=== PATIENT | male | born 1945 | race Caucasian/White ===

== ENCOUNTER 2022-04-19 15:43 | Emergency (ER) | payer OTHER ==
[~2022-04-19] VITALS: Ht 167.6 cm; Wt 81.6 kg
[2022-04-19 15:43] VITALS: BP_SYST 149
--- NOTE | 2022-04-19 15:43 | NUR ---
TRIAGED IN TRIAGE ROOM AND WHEELCHAIRED TO BED #1, REPORT GIVEN TO ZARIA
[2022-04-19 17:11] LABS: ANION GAP 11 (5-15); CALCIUM 10.6 mg/dL (8.4-11.0); CHLORIDE 105 mmol/L (98-107); CREATININE 2.15 mg/dL (0.55-1.30); GLUCOSE 214 mg/dL (70-99); POTASSIUM 4.7 mmol/L (3.5-5.1); SODIUM SERUM 144 mmol/L (136-145); UREA NITROGEN, BLOOD 34 mg/dL (8-21)
[2022-04-19 17:13] LABS: BASOPHILS % (AUTO) 0.4 % (0.0-2.0); HEMATOCRIT 48.7 % (36-54); HEMOGLOBIN 16.5 g/dL (14.0-18.0); LYMPHOCYTES # (AUTO) 1.1 K/uL (1.0-5.5); LYMPHOCYTES % (AUTO) 11.6 % (20.5-51.5); MEAN CORPUSCULAR HEMOGLOBIN 31 pg (27-31); MEAN CORPUSCULAR HGB CONC 34 % (32-36); MEAN CORPUSCULAR VOLUME 92 fL (79.0-98.0); MONOCYTES # (AUTO) 0.4 K/uL (0.0-1.0); MONOCYTES % (AUTO) 4.4 % (1.7-9.3); NEUTROPHILS # (AUTO) 8.2 K/uL (1.8-7.7); NEUTROPHILS % (AUTO) 83.6 % (40.0-70.0); PLATELET COUNT (AUTO) 272 K/uL (130-430); RED BLOOD CELL COUNT(AUTO) 5.27 MIL/uL (4.2-6.2); RED CELL DISTRIBUTION WIDTH 14.6 % (9.0-15.0); WHITE BLOOD COUNT (AUTO) 9.8 K/uL (4.8-10.8)
[2022-04-19 17:20] LABS: ALANINE AMINOTRANSFERASE 37 U/L (12-78); ALBUMIN 3.9 g/dL (3.4-4.8); ASPARTATE AMINOTRANSFERASE 20 U/L (10-37); TOTAL BILIRUBIN 0.7 mg/dL (0.0-1.0)
[2022-04-19] MEDS ORDERED: ASPIRIN 325 MG TABLET PO ONE (17:45)
--- NOTE | 2022-04-19 17:53 | NUR ---
PT BIB WITH C/C OF SOB. DENIES ANY CP, PALPITATIONS, SOB AT THIS TIME. ON ROOM AIR WITH O2 SAT AT 95-96%. LUNGS CLEAR TO AUSCULTATION IN ALL BOYCE. DENIES ANY OTHER PAIN. 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 AFEBRILE. PT WITH RECENT COVID INFECTION 2 WEEKS AGO. CXR DONE. MD AWARE. VSS. ALL NEEDS ATTENDED TO. WILL CONT TO MONITOR.
--- NOTE | 2022-04-19 19:30 | NUR ---
received report from Marv/RN, pt a&o x4, verbal, ambulation not observed, family at bedside, no sob/ distress, no c/o pain at this time. no IV, Hx: CHF, COPD, HTN. came from home, with c/o sob, gen. weakness & not feeling well. pt self cath at home.
[2022-04-19] MEDS ORDERED: AZITHROMYCIN 250 MG TABLET PO ONE (20:15)
[2022-04-19] MEDS ORDERED: cefTRIAXone 1 GM in D5W 50 ML IV ONE (20:15)
[2022-04-19] MEDS ORDERED: cloNIDine HCL 0.1 MG TABLET PO ONE (20:15)
[2022-04-19] MEDS ORDERED: NACL 0.9% 1,000 ML IV ONE ×2 (20:15→21:00)
[2022-04-19] MEDS ORDERED: ONDANSETRON HCL 4 MG/2 ML VIAL IVP ONE (21:00)
[2022-04-19] MEDS ORDERED: PROC10TA13 PO (21:05)
[2022-04-19] MEDS ORDERED: ONDA-8 TL (21:05)
[2022-04-19] MEDS ORDERED: cloNIDine HCL 0.1 MG TABLET ONE (21:50)
[2022-04-19 22:15] VITALS: BP_SYST 154
--- NOTE | 2022-04-19 22:15 | NUR ---
d/c home with family, IV peripheral line d/c cath intact, no bleeding. no sob/ distress, ambulatory with assist, no c/o pain at this time. no further needs.
== END 2022-04-19 22:15 | disposition home or self-care (01) ==
LOC: SED 15:43
DX: R06.02 Shortness of breath (principal); R11.2 Nausea with vomiting, unspecified; I10 Essential (primary) hypertension; Z79.899 Other long term (current) drug therapy
CPT/HCPCS: 99285; 96374; 71045; 96361; 80053; 83880; 85025; 84484; 36415; 93005; 83605; J2405; J7030; 99284

== ENCOUNTER 2023-02-25 13:34 | Inpatient (IN) | payer OTHER ==
[~2023-02-25] VITALS: Ht 167.6 cm; Wt 81.2 kg
[~2023-02-25 13:34] MED LIST: ONDA-8 TL; PROC10TA13 PO
[2023-02-25 13:40] VITALS: BP_SYST 109
[2023-02-25] MEDS ORDERED: NACL 0.9% 1,000 ML IV ONE ×3 (15:00→18:00)
[2023-02-25] MEDS ORDERED: CEFEPIME 1 GM in D5W 50 ML IV ONE (15:00)
[2023-02-25] MEDS ORDERED: CEFEPIME 1 GM/VIAL (MAXIPIME) ONE (15:36)
[2023-02-25] MEDS ORDERED: CRAN500T4 PO (16:07)
[2023-02-25] MEDS ORDERED: MULT-1238 PO (16:07)
[2023-02-25] MEDS ORDERED: CLOP75TA32 PO (16:07)
[2023-02-25] MEDS ORDERED: PIOG45TA PO (16:07)
[2023-02-25] MEDS ORDERED: ECO81 PO (16:07)
[2023-02-25] MEDS ORDERED: METH1TAB PO (16:07)
[2023-02-25] MEDS ORDERED: SIMV-343 PO ×2 (16:07→16:13)
[2023-02-25] MEDS ORDERED: DAPA10TA PO (16:07)
[2023-02-25 16:10] LABS: BASOPHILS % (AUTO) 0.2 % (0.0-2.0); EOSINOPHILS % (AUTO) 0.1 % (0.0-4.0); HEMATOCRIT 48.9 % (36-54); HEMOGLOBIN 16.3 g/dL (14.0-18.0); LYMPHOCYTES # (AUTO) 0.3 K/uL (1.0-5.5); LYMPHOCYTES % (AUTO) 3.9 % (20.5-51.5); MEAN CORPUSCULAR HEMOGLOBIN 32 pg (27-31); MEAN CORPUSCULAR HGB CONC 33 % (32-36); MEAN CORPUSCULAR VOLUME 96 fL (79.0-98.0); MONOCYTES # (AUTO) 0.2 K/uL (0.0-1.0); MONOCYTES % (AUTO) 2.5 % (1.7-9.3); NEUTROPHILS # (AUTO) 7.3 K/uL (1.8-7.7); NEUTROPHILS % (AUTO) 93.3 % (40.0-70.0); PLATELET COUNT (AUTO) 144 K/uL (130-430); RED BLOOD CELL COUNT(AUTO) 5.11 MIL/uL (4.2-6.2); RED CELL DISTRIBUTION WIDTH 14.5 % (9.0-15.0); WHITE BLOOD COUNT (AUTO) 7.8 K/uL (4.8-10.8)
[2023-02-25] MEDS ORDERED: MEMA5TAB42 PO (16:13)
[2023-02-25] MEDS ORDERED: PRO40 PO (16:13)
[2023-02-25 16:17] LABS: ANION GAP 13 (5-15); CHLORIDE 102 mmol/L (98-107); GLUCOSE 168 mg/dL (70-99); UREA NITROGEN, BLOOD 13 mg/dL (8-21)
[2023-02-25 16:22] LABS: ALANINE AMINOTRANSFERASE 703 U/L (12-78); ALBUMIN 3.6 g/dL (3.4-4.8); ASPARTATE AMINOTRANSFERASE 329 U/L (10-37); LIPASE 90 U/L (73-393); TOTAL BILIRUBIN 6.1 mg/dL (0.0-1.0)
[2023-02-25] MEDS ORDERED: AZITHROMYCIN 500 MG in NS 250 ML IV ONE (16:30)
[2023-02-25 16:40] LABS: BILIRUBIN,URINE 2+ (NEGATIVE); BLOOD, URINE NEGATIVE (NEGATIVE); CLARITY/URINE CLEAR (CLEAR); COLOR,URINE YELLOW (YELLOW); GLUCOSE,URINE 3+ (NEGATIVE); KETONES,URINE 2+ (NEGATIVE); LEUKOCYTE ESTERASE ,URINE NEGATIVE (NEGATIVE); NITRITE, URINE NEGATIVE (NEGATIVE); PROTEIN URINE 1+ (NEGATIVE); UROBILINOGEN,URINE 0.2 (0.2-1.0)
[2023-02-25] MEDS ORDERED: AZITHROMYCIN 500 MG/VIAL (ZITHROMAX) IV ONE (16:45)
[2023-02-25 17:01] LABS: BACTERIA,URINE RARE /HPF (None Seen)
[2023-02-25] MEDS: NACL 0.9% 1,000 ML IV SCH (19:44)
[2023-02-25 21:56] VITALS: BP_SYST 158
[2023-02-25] MEDS ORDERED: ACETAMINOPHEN 325 MG TABLET PO PRN (22:45)
[2023-02-25] MEDS ORDERED: cloNIDine HCL 0.2 MG TABLET PO PRN (22:45)
[2023-02-26] VITALS (7 sets, daily range): BP systolic 109–148
[2023-02-26] MEDS ORDERED: LORazepam 2 MG/ML VIAL IVP PRN
[2023-02-26] MEDS ORDERED: ONDANSETRON 4 MG ODT TAB TL PRN
[2023-02-26] MEDS: PANTOPRAZOLE SODIUM 40 MG/VIAL (PROTONIX) IVP SCH ×3 (00:42→21:05)
[2023-02-26] MEDS ORDERED: cefTRIAXone 1 GM VIAL ONE (00:55)
[2023-02-26] MEDS: cefTRIAXone 1 GM IVPB PREMIX 50 ML IV SCH ×2 (01:18→21:05)
[2023-02-26] MEDS: NACL 0.9% 1,000 ML IV SCH ×3 (05:28→21:33)
[2023-02-26 06:04] LABS: BASOPHILS % (AUTO) 0.4 % (0.0-2.0); EOSINOPHILS # (AUTO) 0.1 K/uL (0.0-0.4); EOSINOPHILS % (AUTO) 1.3 % (0.0-4.0); HEMATOCRIT 44.8 % (36-54); HEMOGLOBIN 14.8 g/dL (14.0-18.0); LYMPHOCYTES # (AUTO) 0.5 K/uL (1.0-5.5); LYMPHOCYTES % (AUTO) 8.7 % (20.5-51.5); MEAN CORPUSCULAR HEMOGLOBIN 32 pg (27-31); MEAN CORPUSCULAR HGB CONC 33 % (32-36); MEAN CORPUSCULAR VOLUME 95 fL (79.0-98.0); MONOCYTES # (AUTO) 0.2 K/uL (0.0-1.0); MONOCYTES % (AUTO) 4.4 % (1.7-9.3); NEUTROPHILS # (AUTO) 4.8 K/uL (1.8-7.7); NEUTROPHILS % (AUTO) 85.2 % (40.0-70.0); PLATELET COUNT (AUTO) 125 K/uL (130-430); RED BLOOD CELL COUNT(AUTO) 4.71 MIL/uL (4.2-6.2); RED CELL DISTRIBUTION WIDTH 14.3 % (9.0-15.0); WHITE BLOOD COUNT (AUTO) 5.6 K/uL (4.8-10.8)
[2023-02-26 06:30] LABS: ANION GAP 15 (5-15); CALCIUM 8.7 mg/dL (8.4-11.0); CHLORIDE 105 mmol/L (98-107); CREATININE 1.62 mg/dL (0.55-1.30); GLUCOSE 131 mg/dL (70-99); PHOSPHORUS 2.9 mg/dL (2.7-4.5); UREA NITROGEN, BLOOD 15 mg/dL (8-21)
[2023-02-26] MEDS ORDERED: PROCHLORPERAZINE MALEATE 10 MG TABLET PO PRN ×2 (06:57)
[2023-02-26] MEDS: PIOGLITAZONE HCL 15 MG TABLET PO SCH (08:29)
[2023-02-26] MEDS: ASPIRIN 81 MG TABLET(ECOTRIN) PO SCH (08:30)
[2023-02-26] MEDS: CLOPIDOGREL BISULFATE 75 MG TABLET PO SCH (08:30)
[2023-02-26] MEDS: MEMANTINE HCL 5 MG TABLET PO SCH ×2 (08:30→21:05)
[2023-02-26 08:36] LABS: ALBUMIN 2.9 g/dL (3.4-4.8); BILIRUBIN,DIRECT 3.8 mg/dL (0.0-0.3); TOTAL BILIRUBIN 4.8 mg/dL (0.0-1.0)
[2023-02-26] MEDS ORDERED: AZITHROMYCIN 500 MG in NS 250 ML IV SCH (09:00)
[2023-02-26] MEDS: ONDANSETRON HCL 4 MG/2 ML VIAL IVP PRN ×2 (09:06→21:30)
[2023-02-26] MEDS ORDERED: POLYETHYLENE GLYCOL 3350, 17 GM/ POWD.PACK PO ONE (10:45)
[2023-02-26 11:24] LABS: TOTAL IRON BIND. CAPACITY 195 ug/dL (250-450)
[2023-02-26] MEDS: metroNIDAZOLE 500 mg/NS 100 ML IV SCH ×2 (16:35→21:03)
[2023-02-26] MEDS: SIMVASTATIN 20 MG TABLET PO SCH (21:05)
[2023-02-26] MEDS: POLYETHYLENE GLYCOL 3350, 17 GM/ POWD.PACK PO SCH (21:06)
[2023-02-27 01:28] VITALS: BP_SYST 141
[2023-02-27] MEDS: ONDANSETRON HCL 4 MG/2 ML VIAL IVP PRN (03:16)
[2023-02-27 05:46] LABS: BASOPHILS % (AUTO) 0.4 % (0.0-2.0); HEMATOCRIT 43.5 % (36-54); HEMOGLOBIN 14.5 g/dL (14.0-18.0); LYMPHOCYTES # (AUTO) 0.4 K/uL (1.0-5.5); LYMPHOCYTES % (AUTO) 8.8 % (20.5-51.5); MEAN CORPUSCULAR HEMOGLOBIN 32 pg (27-31); MEAN CORPUSCULAR HGB CONC 33 % (32-36); MEAN CORPUSCULAR VOLUME 94 fL (79.0-98.0); MONOCYTES # (AUTO) 0.2 K/uL (0.0-1.0); MONOCYTES % (AUTO) 4.9 % (1.7-9.3); NEUTROPHILS # (AUTO) 4.3 K/uL (1.8-7.7); NEUTROPHILS % (AUTO) 84.9 % (40.0-70.0); PLATELET COUNT (AUTO) 109 K/uL (130-430); RED BLOOD CELL COUNT(AUTO) 4.62 MIL/uL (4.2-6.2); RED CELL DISTRIBUTION WIDTH 14.4 % (9.0-15.0)
[2023-02-27 06:01] LABS: ALANINE AMINOTRANSFERASE 339 U/L (12-78); ALBUMIN 2.7 g/dL (3.4-4.8); ANION GAP 11 (5-15); ASPARTATE AMINOTRANSFERASE 68 U/L (10-37); C-REACTIVE PROTEIN QUANT 0.8 mg/dL (0-0.5); CALCIUM 8.2 mg/dL (8.4-11.0); CHLORIDE 106 mmol/L (98-107); CREATININE 1.43 mg/dL (0.55-1.30); GLUCOSE 173 mg/dL (70-99); PHOSPHORUS 2.4 mg/dL (2.7-4.5); TOTAL BILIRUBIN 1.4 mg/dL (0.0-1.0); UREA NITROGEN, BLOOD 15 mg/dL (8-21)
[2023-02-27] MEDS: metroNIDAZOLE 500 mg/NS 100 ML IV SCH ×3 (06:02→21:10)
[2023-02-27 06:27] LABS: INR 1.1 (0.80-1.20); PROTHROMBIN TIME 10.9 SECS (9.5-12.5)
[2023-02-27 06:48] LABS: ERYTHROCYTE SEDIMENTATION RATE 38 MM/HR (0-15)
[2023-02-27 08:42] VITALS: BP_SYST 114
[2023-02-27 10:07] LABS: ALPHA-1-ANTITRYPSIN, S 123 mg/dL (101-187)
[2023-02-27] MEDS: MEMANTINE HCL 5 MG TABLET PO SCH ×2 (10:31→21:13)
[2023-02-27] MEDS: ASPIRIN 81 MG TABLET(ECOTRIN) PO SCH (10:31)
[2023-02-27] MEDS: PIOGLITAZONE HCL 15 MG TABLET PO SCH (10:31)
[2023-02-27] MEDS: POLYETHYLENE GLYCOL 3350, 17 GM/ POWD.PACK PO SCH ×2 (10:31→21:11)
[2023-02-27] MEDS: PANTOPRAZOLE SODIUM 40 MG/VIAL (PROTONIX) IVP SCH ×2 (10:31→21:12)
[2023-02-27] MEDS: CLOPIDOGREL BISULFATE 75 MG TABLET PO SCH (10:31)
[2023-02-27] MEDS: NACL 0.9% 1,000 ML IV SCH ×2 (10:32→21:13)
[2023-02-27 11:06] LABS: AFP, TUMOR MARKER <1.8 ng/mL (0.0-8.4)
[2023-02-27 11:57] VITALS: BP_SYST 139
[2023-02-27 12:06] LABS: FERRITIN 307 ng/mL (30-400)
[2023-02-27 15:42] VITALS: BP_SYST 150
[2023-02-27 19:00] VITALS: BP_SYST 141
[2023-02-27 20:00] VITALS: BP_SYST 141
[2023-02-27] MEDS: cefTRIAXone 1 GM IVPB PREMIX 50 ML IV SCH (21:01)
[2023-02-27] MEDS: SIMVASTATIN 20 MG TABLET PO SCH (21:12)
[2023-02-28 00:17] VITALS: BP_SYST 119
[2023-02-28] MEDS: metroNIDAZOLE 500 mg/NS 100 ML IV SCH ×2 (05:10→14:08)
[2023-02-28] MEDS: NACL 0.9% 1,000 ML IV SCH (05:11)
[2023-02-28 06:08] LABS: BASOPHILS % (AUTO) 0.7 % (0.0-2.0); EOSINOPHILS # (AUTO) 0.1 K/uL (0.0-0.4); EOSINOPHILS % (AUTO) 3.1 % (0.0-4.0); HEMOGLOBIN 13.8 g/dL (14.0-18.0); LYMPHOCYTES # (AUTO) 0.7 K/uL (1.0-5.5); LYMPHOCYTES % (AUTO) 18.7 % (20.5-51.5); MEAN CORPUSCULAR HEMOGLOBIN 32 pg (27-31); MEAN CORPUSCULAR HGB CONC 34 % (32-36); MEAN CORPUSCULAR VOLUME 94 fL (79.0-98.0); MONOCYTES # (AUTO) 0.4 K/uL (0.0-1.0); MONOCYTES % (AUTO) 9.8 % (1.7-9.3); NEUTROPHILS # (AUTO) 2.6 K/uL (1.8-7.7); NEUTROPHILS % (AUTO) 67.7 % (40.0-70.0); PLATELET COUNT (AUTO) 109 K/uL (130-430); RED BLOOD CELL COUNT(AUTO) 4.38 MIL/uL (4.2-6.2); RED CELL DISTRIBUTION WIDTH 14.5 % (9.0-15.0); WHITE BLOOD COUNT (AUTO) 3.9 K/uL (4.8-10.8)
[2023-02-28 06:48] LABS: ERYTHROCYTE SEDIMENTATION RATE 20 MM/HR (0-15)
[2023-02-28 08:01] VITALS: BP_SYST 144
[2023-02-28 08:14] LABS: ALANINE AMINOTRANSFERASE 214 U/L (12-78); ALBUMIN 2.5 g/dL (3.4-4.8); ANION GAP 9 (5-15); ASPARTATE AMINOTRANSFERASE 35 U/L (10-37); C-REACTIVE PROTEIN QUANT 0.3 mg/dL (0-0.5); CALCIUM 7.9 mg/dL (8.4-11.0); CHLORIDE 103 mmol/L (98-107); CREATININE 1.25 mg/dL (0.55-1.30); GLUCOSE 164 mg/dL (70-99); PHOSPHORUS 2.5 mg/dL (2.7-4.5); TOTAL BILIRUBIN 0.8 mg/dL (0.0-1.0); UREA NITROGEN, BLOOD 14 mg/dL (8-21)
[2023-02-28] MEDS: PIOGLITAZONE HCL 15 MG TABLET PO SCH (08:54)
[2023-02-28] MEDS: MEMANTINE HCL 5 MG TABLET PO SCH (08:54)
[2023-02-28] MEDS: CLOPIDOGREL BISULFATE 75 MG TABLET PO SCH (08:54)
[2023-02-28] MEDS: POLYETHYLENE GLYCOL 3350, 17 GM/ POWD.PACK PO SCH (08:55)
[2023-02-28] MEDS: ASPIRIN 81 MG TABLET(ECOTRIN) PO SCH (08:55)
[2023-02-28] MEDS: PANTOPRAZOLE SODIUM 40 MG/VIAL (PROTONIX) IVP SCH (08:55)
[2023-02-28] MEDS ORDERED: POTASSIUM CHLORIDE 20 MEQ TAB.PRT.SR PO ONE (09:00)
[2023-02-28 12:07] LABS: HEPATITIS A AB, IgM Negative (Negative); HEPATITIS B CORE AB, IgM Negative (Negative); HEPATITIS B SURFACE AG Negative (Negative)
[2023-02-28] MEDS ORDERED: DOCU-144 PO (12:20)
[2023-02-28] MEDS ORDERED: AMOX-423 PO (12:20)
[2023-02-28] MEDS ORDERED: MECL-225 PO (12:30)
[2023-02-28] MEDS ORDERED: K PHOS 15 MM in NS 250 ML IV ONE (13:30)
[2023-02-28 14:00] VITALS: BP_SYST 157
[2023-02-28 16:00] VITALS: BP_SYST 148
[2023-02-28 19:45] VITALS: BP_SYST 118
[2023-03-01 08:06] LABS: ANTI-SMOOTH MUSCLE AB 9 Units (0-19)
[2023-03-04 19:06] LABS: ANTI NUCLEAR AB WITH REFLEX Negative (Negative)
== END 2023-02-28 20:20 | disposition home health service (06) | DRG 871 ==
LOC: SED 13:34 → STU 19:20 → SMU 02-28 20:03
PROVIDERS: ADMIT Preventive Medicine Preventive Medicine/Occupational Environmental Medicine; ATTEND Preventive Medicine Preventive Medicine/Occupational Environmental Medicine
PROC: 5A09357 Assistance with Respiratory Ventilation, Less than 24 Consecutive Hours, Continuous Positive Airway Pressure (ICD-10-PCS; principal; 2023-02-26)
DX: A41.9 Sepsis, unspecified organism (principal); E43 Unspecified severe protein-calorie malnutrition; J69.0 Pneumonitis due to inhalation of food and vomit; N17.9 Acute kidney failure, unspecified; D61.818 Other pancytopenia; E87.20 Acidosis, unspecified; K76.9 Liver disease, unspecified; E11.65 Type 2 diabetes mellitus with hyperglycemia; E78.5 Hyperlipidemia, unspecified; E83.39 Other disorders of phosphorus metabolism; E83.51 Hypocalcemia; E87.6 Hypokalemia; E88.09 Other disorders of plasma-protein metabolism, not elsewhere classified; D69.6 Thrombocytopenia, unspecified; Z68.28 Body mass index [BMI] 28.0-28.9, adult; D63.1 Anemia in chronic kidney disease; I12.9 Hypertensive chronic kidney disease with stage 1 through stage 4 chronic kidney disease, or unspecified chronic kidney disease; E11.22 Type 2 diabetes mellitus with diabetic chronic kidney disease; N18.31 Chronic kidney disease, stage 3a; I25.10 Atherosclerotic heart disease of native coronary artery without angina pectoris; K21.9 Gastro-esophageal reflux disease without esophagitis; K80.20 Calculus of gallbladder without cholecystitis without obstruction; Z86.73 Personal history of transient ischemic attack (TIA), and cerebral infarction without residual deficits; Z88.2 Allergy status to sulfonamides
CPT/HCPCS: 36415; 71045; 74181; 76376; 76700-TC; 80048; 80053; 80074; 80076; 81000; 82103; 82105; 82390; 82728; 82962; 82977; 83516; 83540; 83550; 83605; 83690; 83735; 84100; 85025; 85610-TC; 85651-TC; 85730-TC; 86038; 86140; 87040; 93005; 93306; 93880; 94660; 94760; 96361; 96365; 96367; 97112-GP; 97116-GP; 97530-GP; 99291; C9113; G0378; J0456; J0692; J0696; J2060; J2405; J3490; J7050; Q0164